=== PATIENT | female | born 1965 | race Caucasian/White ===

== ENCOUNTER → 2017-07-17 16:09 | Outpatient (CLI) | payer MEDICARE | END | disposition home or self-care (01) | LOC: D.MAMMO 15:00 | DX: Z12.31 Encounter for screening mammogram for malignant neoplasm of breast (principal) ==

== ENCOUNTER → 2019-05-14 09:00 | Outpatient (CLI) | payer MEDICARE | END | disposition home or self-care (01) | LOC: D.MAMMO 09:00 | PROVIDERS: ATTEND General Practice | DX: Z12.31 Encounter for screening mammogram for malignant neoplasm of breast (principal) ==

== ENCOUNTER 2021-02-03 09:35 | Day surgery (SDC) | payer MEDICARE ==
[2021-01-31 10:59] LABS: HEMATOCRIT 40.4 % (36.0-48.0); HEMOGLOBIN 13.5 g/dL (12-16); MCH 30.5 pg (26.0-34.0); MCHC 33.4 g/dL (31.0-37.0); MCV 91.4 fL (80.0-100.0); MEAN PLATELET VOLUME 9.9 fL (7.4-10.4); RBC 4.42 10x6/uL (4.00-5.40); RDW 12.9 % (11.5-14.5); WBC 8.2 10x3/uL (4.8-10.8)
[~2021-02-03] VITALS: Ht 172.7 cm; Wt 92.3 kg
--- NOTE | ~2021-02-03 | OP ---
PATIENT NAME: THOMAS DHILLON MEDICAL RECORD: [id number] :69 LOCATION:D.OPS ADMISSION DATE: SURGEON: JAVIER SANDOVAL DO DATE OF OPERATION: 02/03/2021 PREOPERATIVE DIAGNOSES: 1. Postmenopausal bleeding. 2. Abnormal uterine bleeding. 3. Polyp. POSTOPERATIVE DIAGNOSES: 1. Postmenopausal bleeding. 2. Abnormal uterine bleeding. 3. Polyp. PRIMARY SURGEON: Javier Sandoval MD ANESTHESIA: LMA. PROCEDURE: Hysteroscopy, polypectomy, D&C. FINDINGS: A 1 cm polyp at os. Polypoid tissue in the uterus. Uterus sounded to 7 cm. SPECIMENS: Polyp and endometrial curettings. ESTIMATED BLOOD LOSS: Less than 10 cc. INTRAVENOUS FLUIDS: Per anesthesia. URINE OUTPUT: 100 cc clear yellow urine via red rubber. INFECTION PROPHYLAXIS: 2 grams Ancef. COMPLICATIONS: None. Prior to procedure, risks of surgery including bleeding, pain, infection, damage to surrounding structures such as bowel, bladder, neurovascular structures and perforation discussed. The patient expressed understanding and consents were signed in the office. All questions answered preoperatively. DESCRIPTION OF PROCEDURE: The patient was taken to the operating room where anesthesia was administered and found to be adequate. She was prepped and draped in normal sterile fashion in dorsal lithotomy position. A speculum placed in the vagina and the anterior lip of the cervix was grasped with a tenaculum. Cervix dilated, sounded to 7 cm. Hysteroscope placed. Polyp noted and the uterine cavity examined and noted to have polypoid tissue. Scope removed. Polyp forceps were used to grasp the polyp and removed. Then cervix was dilated to accommodate a small sharp curette and uterus curettaged in a clockwise fashion until gritty feeling was noted. Specimens sent to pathology. Tenaculum removed. Silver nitrate was applied. Hemostasis was appropriate. All instruments were removed. The patient awakened tolerated the procedure well. All instrument, lap and needle counts were correct times 2 and the patient was taken to the recovery room in stable condition. OPERATIVE REPORT [id number] THOMAS DHILLON TRANSINT:[id number] Voice Confirmation ID: [id number] DOCUMENT ID: [id number] JAVIER SANDOVAL DO CC: [id number] DICTATION DATE: 02/04/212201 [employer] MACHINE OPERATOR HELPER: 02/05/21530 [facility] 02/03/21 [facility] [address] [place] [address]
[~2021-02-03 09:35] MED LIST: ESTRACE1 MG PO; FLUOXETINE HCL 20 MG PO; KLONOPIN0.5 MG PO; LEVOXYL150 MCG PO; NEURONTIN800 MG PO; ULTRAM50 MG PO; ZANAFLEX4 MG PO
[2021-02-03 10:08] VITALS: BP 139/78; Ht 172.7 cm; Wt 92.3 kg
[2021-02-03 10:10] LABS: HCG URINE NEGATIVE (NEGATIVE)
--- NOTE | 2021-02-03 15:08 | NUR ---
PT DENIES ANY C/O OF PAIN. PERIPAD IN PLACE. IV D/C'D WITH CANNULA INTACT. PRESSURE HELD AND DRSG IN PLACE. DISCHARGE INSTRUCTIONS GIVEN AND PT VERBALIZED AN UNDERSTANDING.
== END 2021-02-03 13:55 | disposition home or self-care (01) ==
LOC: D.OPS 09:35
PROVIDERS: Anesthesiology; ATTEND Obstetrics & Gynecology
DX: N95.0 Postmenopausal bleeding (principal); N93.9 Abnormal uterine and vaginal bleeding, unspecified; N84.0 Polyp of corpus uteri; Z01.419 Encounter for gynecological examination (general) (routine) without abnormal findings; N89.8 Other specified noninflammatory disorders of vagina; N95.9 Unspecified menopausal and perimenopausal disorder; F17.200 Nicotine dependence, unspecified, uncomplicated